=== PATIENT | female | born 1965 | race Caucasian/White ===

== ENCOUNTER 2018-12-10 01:04 | Observation (INO) | payer BC ==
[~2018-12-10] VITALS: Ht 165.1 cm; Wt 79.8 kg
[2018-12-10] VITALS (11 sets, daily range): BP systolic 94–145; BP diastolic 57–89
[~2018-12-10 01:04] MED LIST: PHEN15CA69 PO; [UNRECOGNIZED DRUG - OTHER] IM
[2018-12-10] MEDS ORDERED: LIDOCAINE MPF 1% 5 ML VIAL ONE (09:42)
[2018-12-10] MEDS ORDERED: ROCURONIUM BR 10 MG/ML 5 ML SY 5 ML ONE ×2 (09:42→14:04)
[2018-12-10] MEDS ORDERED: DEXAMETHASONE SOD 4 MG/ML VIAL ONE (09:42)
[2018-12-10] MEDS ORDERED: METOCLOPRAMIDE 10 MG/2 ML SDV ONE (09:42)
[2018-12-10] MEDS ORDERED: PROPOFOL EMUL(*) 10MG/ML 20 ML 20 ML ONE (09:42)
[2018-12-10] MEDS ORDERED: ONDANSETRON 4 MG/2 ML VIAL ONE (09:42)
[2018-12-10] MEDS ORDERED: fentaNYL CITR 250 MCG/5 ML AMP ONE (09:45)
[2018-12-10] MEDS ORDERED: ROPIVACAINE 0.2% 20 ML VIAL ONE (10:47)
[2018-12-10] MEDS ORDERED: NS(*) 0.9% 100 ML BAG 100 ML ONE (10:47)
[2018-12-10] MEDS ORDERED: MANNITOL* (20%)100 GM/500ML BG 500 ML IVPB ONE (10:47)
[2018-12-10] MEDS ORDERED: ESTROGENS CONJ VAG CREAM 30 GM TUBE PV ONE (10:48)
[2018-12-10] MEDS ORDERED: VASOPRESSIN 20 UNIT/ML VIAL ONE (10:48)
[2018-12-10 10:58] LABS: PLATELET COUNT, AUTOMATED 340 K/uL (150-450)
[2018-12-10] MEDS ORDERED: LIDOCAINE/SOD BICARB 8.4% SYR ID ONE (11:00)
[2018-12-10] MEDS ORDERED: NORMOSOL R SOLN(*) 1000 ML BAG 1,000 ML IV PRN (11:00)
[2018-12-10] MEDS ORDERED: MIDAZOLAM 2 MG/2 ML VIAL IVP PRN (11:00)
[2018-12-10] MEDS ORDERED: cefOXitin/DEX(*) 2GM/50ML PREM 50 ML IVPB ONE (11:00)
[2018-12-10] MEDS ORDERED: FAMOTIDINE 20 MG TAB PO ONE (11:00)
[2018-12-10] MEDS ORDERED: SUGAMMADEX SOD 200 MG/2 ML SDV ONE (12:24)
[2018-12-10] MEDS ORDERED: ACETAMINOPHEN(*)1000 MG/100 ML 100 ML IVPB ONE (12:35)
[2018-12-10] MEDS ORDERED: hydrALAZINE HCL 20 MG/ML VIAL ONE (13:54)
[2018-12-10] MEDS ORDERED: HYDROmorphone HCL 2 MG/ML SDV ONE (15:33)
[2018-12-10] MEDS ORDERED: INFLUENZA VIRUS VAC 0.5ML SYR IM ONE (16:40)
[2018-12-10] MEDS ORDERED: ONDANSETRON 4 MG/2 ML VIAL IV PRN (16:40)
[2018-12-10] MEDS ORDERED: SIMETHICONE 80 MG CHEW CHEW PRN (16:40)
[2018-12-10] MEDS ORDERED: PROMETHAZINE 25 MG/ML 1 ML AMP IVP PRN (16:40)
[2018-12-10] MEDS ORDERED: HYDROmorphone HCL 2 MG TAB PO PRN (16:40)
[2018-12-10] MEDS ORDERED: ACETAMINOPHEN 325 MG TAB PO PRN (16:40)
[2018-12-10] MEDS ORDERED: ZOLPIDEM TARTRATE 10 MG TAB PO PRN (16:40)
[2018-12-10] MEDS ORDERED: oxyCODON/ACET (*)5/325MG (CII) 1 TAB TAB PO PRN (16:40)
[2018-12-10] MEDS ORDERED: DOCU240C67 PO (16:45)
[2018-12-10] MEDS ORDERED: OXYC-865 PO (16:45)
[2018-12-10] MEDS ORDERED: IBUP800T37 PO (16:45)
--- NOTE | 2018-12-10 17:22 | Post Operative Note ---
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 Day Date: Dec 10, 2018 Time: 17:20 Physicians Surgeon: Ramiro Chha: Wilda Cadet Anesthesia: GETA Diagnosis Pre-Op Diagnosis: Menometrorrhagia Uterind fibroids Postmenopausal symptoms Cystocele Rectocele Perineocele Post-Op Diagnosis: same Procedure Procedure(s): RATLH Bilateral salpingoophorectomy MMC Cysto Anterior colporrhaphy Posterior colporrhaphy perieoplasty Specimen Removed:(Maybe N/A): uterus Complications: none Fluids Fluids: 2400 ml Estimated Blood Loss: 100 ml Dictated Date OP Note Dictated: Dec 10, 2018 Time OP Note Dictated: 17:22 Copies to: MAGNUS MCKOY MD ; MAGNUS MCKOY MD Dec 10, 2018 17:22
[2018-12-10] MEDS ORDERED: MEPERIDINE HCL 50 MG/ML SDV 50 MG/ML VIAL ONE (17:32)
[2018-12-10] MEDS: KETOROLAC 30 MG/ML VIAL IVP SCH ×2 (17:53→23:31)
[2018-12-10] MEDS: DLR(*) 1000 ML BAG 1,000 ML IV PRN (18:24)
[2018-12-10] MEDS: DOCUSATE CALCIUM 240 MG CAP PO SCH (20:44)
[2018-12-10] MEDS: FAMOTIDINE 20 MG TAB PO SCH (20:44)
--- NOTE | 2018-12-10 21:04 | OPERATIVE REPORT 1 ---
EVENT DATE: December 10, 2018 SURGEON: Pascual Rubio MD ANESTHESIOLOGIST: Kin Beckwith MD ANESTHESIA: General endotracheal. CERTIFIED MARINE MECHANIC: Wilda Cadet PA-C PREOPERATIVE DIAGNOSES 1. Menometrorrhagia. 2. Uterine fibroids. 3. Cystocele. 4. Rectocele. 5. Postmenopausal. 6. Perineocele. POSTOPERATIVE DIAGNOSES 1. Menometrorrhagia. 2. Uterine fibroids. 3. Cystocele. 4. Rectocele. 5. Postmenopausal. 6. Perineocele. PROCEDURES PERFORMED 1. Robotic-assisted total laparoscopic hysterectomy. 2. Bilateral salpingo-oophorectomy. 3. Modified Fallon culdoplasty. 4. Diagnostic cystoscopy. 5. Posterior colporrhaphy. 6. Perineoplasty. ESTIMATED BLOOD LOSS 100 mL. FLUIDS Crystalloid 2400 mL IV. FINDINGS On inspecting the pelvis, the uterus was significantly enlarged and irregular in contour, consistent with intramural uterine fibroids. Imaging prior to the procedure showed submucous uterine fibroids as well. Normal-appearing ovaries bilaterally, although postmenopausal. Normal-appearing pelvis otherwise. Midline rectocele. DESCRIPTION OF PROCEDURE The patient was brought to the operating room with a working IV and placed in the dorsal supine position. She was placed under general endotracheal anesthesia and moved to the dorsal lithotomy position. She was then prepped and draped in the usual sterile fashion. A weighted speculum was placed in the vagina. The cervix was grasped on the anterior lip with a single-toothed tenaculum. It was sounded to a depth of 13 cm anteverted. The cervix was carefully dilated in order to accommodate a large VCare uterine manipulator, which was assembled and passed through the cervix into the uterus. The bulb was inflated and secured, and all other instruments were then removed. The VCare cup was sutured to the cervix. The pneumo cup was approximated against the VCare cup and secured in place. Seaman catheter was placed to dependent drainage. Legs were brought back to the supine position, and gloves were changed. The target anatomy was measured well above the pubic symphysis, and 12 cm above this ended up being approximately 5 cm cephalad to the umbilicus. This was marked for the robotic umbilical camera port. It was infiltrated with 0.2% Naropin, and an 8 mm stab incision was made. Veress needle was passed through this incision into the abdomen while elevating the anterior abdominal wall. A pneumoperitoneum was created to an intra-abdominal pressure of 20 mmHg. Veress needle was then removed, and an 8 mm bladeless trocar was passed into this incision into the abdomen. Four additional ports were placed as two left lateral of this incision, angled caudad, as well as the right-sided in a similar fashion, all spaced 8 cm apart and utilizing a similar technique and under direct visualization. Once all those ports had been placed, the patient was moved to the steep Trendelenburg position, and the bowel and contents of the pelvis were swept free. The abdomen and pelvis were surveyed with the above findings noted. The robot was then brought overlying the patient, and the camera port was docked. The targeting procedure was performed and completed, followed by docking the remainder of the robotic arms. The instruments were then brought into the abdomen under direct visualization through the scope. Once this had all been completed, I scrubbed out and presented to the console. The hysterectomy proceeded as follows: The right tube and ovary were exposed, grasped, and put on medial stretch, exposing the IP ligament. This was cauterized times two, transected with the vessel sealer, dissected along its pelvic connection, and dissected to the round ligament. This was cauterized and transected, entering the broad ligament, which was into anterior and posterior leaflets. The anterior dissection was then performed overlying the VCare cup that was palpable beneath. The uterine vasculature was then skeletonized by dissecting posteriorly toward the uterosacral ligament. The uterine vasculature was then cauterized multiple times in a perpendicular fashion and transected, followed by parallel bites along the lateral uterus down to and overlying the VCare cup. The same procedure was followed on the contralateral side, exposing the IP ligament there, doubly cauterizing and transecting the IP ligament, dissecting the ovary away to its pelvic connection to the round ligament, which was cauterized and transected. The anterior dissection was completed. Posteriorly, the left uterine vasculature was skeletonized. The uterine vessels were then cauterized in a perpendicular fashion times three and then transected with parallel bites along the lateral uterus, performed down to and overlying the VCare cup. Once this had been completed, anterior colpotomy was performed, identifying the VCare cup, and this was further extended circumferentially around through the uterosacral ligaments posteriorly and to the contralateral side, releasing the uterus. The uterus was too large in size to be removed through the vagina intact; therefore, time was taken to perform two separate myomectomies of large fibroids off the uterus using monopolar scissors and the graspers for manipulation. Once those fibroids had been removed, the bulk of the uterus had been reduced significantly and was able to be removed through the vagina. The individual fibroids were taken out using a tenaculum through the vagina and handed off using the robot. This was all performed successfully and without injury. Pelvis was then irrigated and suctioned dry. Instruments were swapped for suturing. 0 Vicryl was then used to ligate the uterosacral ligament to the ipsilateral vaginal cuff. This was performed bilaterally. The vagina was then repaired using a 2-0 V-Loc stitch in a running nonlocking fashion. On completion, there was excellent hemostasis and repair of the vagina, giving excellent support to the apex of the vagina. Pelvis was irrigated and suctioned dry. Pneumoperitoneum was released. The robot was undocked. All instruments were removed from the abdomen including the trocars. Skin incisions were repaired with a 4-0 Monocryl simple subdermal and covered with Dermabond on the skin of each. I scrubbed back in and performed diagnostic cystoscopy. Using 20% mannitol, both ureters were observed to have strong urine jets without visible injury. The entire bladder was inspected and found to be without injury. The bladder was then drained. Attention was turned to the posterior repair. There was a midline defect. The area was demarcated along the midline, and marifer-shaped wedge resection was planned on the perineum in order to repair the perineal defect. The outer skin was dissected in a wedge resection fashion, followed by a linear incision along the length of the defect. The fascia and mucosa were dissected away using sharp dissection laterally, and this exposed the extent of the defect. It first was reduced using a pursestring stitch, followed by Massiel plication stitches along the entire length of the defect. Upon completion, this was entirely repaired and hemostatic. A finger was inserted anally to palpate the defect from the rectum, and there were no site-specific repairs needed. Therefore, gloves were changed. Excess vagina was trimmed away. Vaginal repair was performed with a 2-0 Vicryl in a running locking fashion, followed by perineoplasty as is typical for a second-degree obstetrical tear with an excellent reapproximation of the skin edges, rebuilding of the perineal body, and hemostasis achieved. The vagina was then irrigated, suctioned dry, and no visible bleeders. Therefore, the vagina was packed with a Kerlix sponge moistened with Premarin cream. The Seaman catheter was left indwelling. The legs were brought back to the supine position. She was awakened from general anesthesia in stable condition and taken to Recovery. Sponge, lap, needle, and instrument counts were all correct times three. MTDD
[2018-12-11] VITALS: BP 97/59
[2018-12-11 01:00] VITALS: BP 95/58
[2018-12-11] MEDS: DLR(*) 1000 ML BAG 1,000 ML IV PRN (01:26)
[2018-12-11 02:11] VITALS: BP 110/65
[2018-12-11] MEDS: KETOROLAC 30 MG/ML VIAL IVP SCH (06:14)
[2018-12-11 06:59] LABS: PLATELET COUNT, AUTOMATED 300 K/uL (150-450)
[2018-12-11 07:20] VITALS: BP 102/66
[2018-12-11] MEDS: FAMOTIDINE 20 MG TAB PO SCH (08:56)
[2018-12-11] MEDS: DOCUSATE CALCIUM 240 MG CAP PO SCH (08:56)
[2018-12-11 11:20] VITALS: BP 115/69
--- NOTE | 2018-12-11 11:43 | OB/GYN Progress Note ---
OB Subjective Progress Notes Subjective Feeling well. Pain well controlled and ambulating and voiding well. Has passed gas. Wants to go home. GI: NEG Nausea : Voiding Well Pain: Mild OB Objective Physical Exam Vital Signs Date Time Temp Pulse Resp B/P (MAP) Pulse Ox O2 Delivery O2 Flow Rate FiO2 12/11/18 07:20 99 Room Air 12/11/18 07:20 98.1 82 15 102/66 (78) 12/10/18 20:30 0.5 Intake and Output 12/11/18 07:03 Intake Total 6740 ml Output Total 1160 ml Balance 5580 ml Intake Oral 340 ml IV Total 3700 ml Other 2700 ml Output Urine Total 1060 ml Estimated Blood Loss 100 ml # Voids 1 General Appearance: Alert/Awake/No Acute Distress Neurological: No Gross deficits Cardiovascular: Normal Rhythm & Peripheral Pulses, Regular Rate and Rhythm Respiratory: No Respiratory Distress, Clear to Auscultation Abdomen: Soft, Non-Tender, Non-Distended Incision: Clean, Dry, Intact, Dermabond Extremities: No Cyanosis,Clubbing or Edema Integumentary: Skin Intact without Lesions or Rash Psychological: Alert & Oriented X3, Appropriate Mood & Affect Result Diagram: 12/11/18 0641 Assessment and 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 Reviewed activity limitations and f/u plan. Return to office in 2 weeks. (2) History of robot-assisted laparoscopic hysterectomy MAGNUS MCKOY MD Dec 11, 2018 11:43
[2018-12-11] MEDS ORDERED: OXYC-865 PO (11:44)
[2018-12-11] MEDS ORDERED: FERR-53 PO (11:44)
--- NOTE | 2018-12-11 11:45 | Short(Outpt) Discharge Summary ---
Discharge Summary Reason for Hosp/Final Diag: (1) Other specified aftercare following surgery Hospital Course & Plan: Reviewed discharge instructions and precautions. Reviewed activity limitations and f/u plan. Return to office in 2 weeks. (2) History of robot-assisted laparoscopic hysterectomy Departure Discharge to: Home, Self Care Discharge Instructions Home Meds Active Scripts Ferrous Sulfate (FERROUS SULFATE) 325 Mg Tablet, 1 TAB PO DAILY, #30 TAB 1 Refill Prov:MAGNUS MCKOY MD 12/11/18 Oxycodone Hcl/Acetaminophen (PERCOCET 5-325 MG TABLET) 1 Each Tablet, 1-2 EACH PO Q6H PRN for PAIN, #20 TAB 0 Refills Prov:MAGNUS MCKOY MD 12/11/18 Oxycodone Hcl/Acetaminophen (PERCOCET 5-325 MG TABLET) 1 Each Tablet, 1 EACH PO Q4-6H PRN for PAIN, #20 TAB 0 Refills TAKE 1 TABLET NEEDED FOR PAIN - NO CLOSER THAN EVERY 4-6 HOURS. Prov:AGUSTIN VILLATORO 12/10/18 Reported Medications [S[place]] Unknown Strength No Conflict Check, IM [id number] 12/08/18 Phentermine Hcl (PHENTERMINE HCL) 15 Mg Capsule, 15 MG PO QDAY, CAPSULE 12/08/18 Follow up Referrals: NEUROSURGEON - In Two Weeks @ [facility] with MAGNUS MCKOY MD Diet: Regular Activity: As Tolerated, No Heavy Lifting, No Exertion, No Driving (on narcotic) Copies to: MAGNUS MCKOY MD ; MAGNUS MCKOY MD Dec 11, 2018 11:45
[2018-12-11] MEDS ORDERED: DOCU240C67 PO (11:50)
[2018-12-11] MEDS ORDERED: IBUP800T37 PO (11:50)
[2018-12-11] MEDS ORDERED: IBUPROFEN 800 MG TAB PO PRN (12:00)
== END 2018-12-11 11:44 | disposition home or self-care (01) ==
LOC: OR 01:04 → PED 18:00 → INTOOBSV 18:00
PROVIDERS: ADMIT Obstetrics & Gynecology; ATTEND Obstetrics & Gynecology
DX: N92.1 Excessive and frequent menstruation with irregular cycle (principal); D25.1 Intramural leiomyoma of uterus; N81.10 Cystocele, unspecified; N81.6 Rectocele; N81.81 Perineocele
CPT/HCPCS: 36415; 56810; 58571; 84703; 85025; 88307; G0378; J0131; J0360; J0694; J1100; J1170; J1885; J2001; J2175; J2250; J2405; J2704; J2765; J2795; J3010; J3490; J7050; S2900